=== PATIENT | male | born 1935 | race Caucasian/White ===

== ENCOUNTER 2019-08-23 18:31 | Observation (INO) | payer MEDICARE ==
[~2019-08-23] VITALS: Ht 180.3 cm; Wt 76.7 kg
[~2019-08-23 18:31] MED LIST: ASPIRIN EC81 MG PO; BENAZEPRIL10 MG PO; BICALUTAMIDE50 MG PO; CIPROFLOXACN500 MG PO; FOLIC ACID1 MG PO; MAXITROL0.1 % OD; VALTREX1 GM PO; [UNRECOGNIZED DRUG - OTHER] OR
--- NOTE | 2019-08-23 18:31 | NUR ---
PT HERE PER EMS. ALERT/
[2019-08-23 19:10] LABS: GFR > 60 ML/MIN (>=60 (CALC)); GFR FOR AFR.AMER. > 60 ML/MIN (>=60 (CALC))
[2019-08-23 19:10] LABS: HEMATOCRIT 39.7 % (39.0-50.0); HEMOGLOBIN 13.6 g/dl (14.0-18.0); IMMATURE GRANULOCYTES 0.8 % (0.0-5.0); MEAN CELL VOLUME 91.1 fL CALC (80.0-100.0); MEAN CORPUSCULAR HGB 31.2 pG CALC (26.0-32.0); MEAN CORPUSCULAR HGB CONC 34.3 g/dL CAL (32.0-36.0); NEUT# 10.22 thou/uL (1.82-7.42); RED BLOOD COUNT 4.36 mill/uL (4.70-6.10); RED CELL DISTRI WIDTH 12.1 % (11.5-15.5)
--- NOTE | 2019-08-23 19:24 | NUR ---
REPORT GIVEN TO ISABELA ORTIZ
--- NOTE | 2019-08-23 19:25 | NUR ---
ASSUMED CARE. PT WAS IN CT WITH DAY STAFF AND UPON RETURN BACK TO THE DEPARTMENT PT WAS EVALUATED BY DR. THORNTON. STATES STROKE SCALE IS NEGATIVE. APPARENTLY TELESTROKE WAS NOT CONNECTING WITH NEUROLOGIST WHILE PT WAS IN CT.
[2019-08-23 19:31] LABS: INTERNATIONAL NORMALIZED RATIO 0.9 RATIO (0.7-1.3); PROTHROMBIN TIME 9.8 SECONDS (9.0-12.5)
--- NOTE | 2019-08-23 19:37 | NUR ---
DR THORNTON BACK AT BEDSIDE TO RE-EVAL PT. AT BEDSIDE. PT IS A/O (VERY HARD OF HEARING) GRANADOS. GRASPS EQUAL AND STRONG. ROM + TO ALL EXT. SPEECH CLEAR
[2019-08-23 19:46] LABS: ALBUMIN 3.9 g/dL (3.2-5.0); ALKALINE PHOSPHATASE 71 u/l (38-126); ANION GAP 9 (6-22 (CALC)); BILIRUBIN, TOTAL 0.3 mg/dL (0.0-1.4); BUN 18 mg/dL (8-23); BUN/CREATININE RATIO 21 (12-20 (CALC)); CARBON DIOXIDE 27 mmol/l (22-30); CHLORIDE 101 mmol/l (95-108); CREATININE 0.9 mg/dL (0.7-1.3); GFR > 60 ML/MIN (>=60 (CALC)); GFR FOR AFR.AMER. > 60 ML/MIN (>=60 (CALC)); LIPASE 53 u/l (23-300); POTASSIUM 3.6 mmol/l (3.5-5.1); SGOT/AST 21 u/l (19-48); SODIUM 134 mmol/l (137-146); TOTAL PROTEIN 6.6 g/dL (6.3-8.2)
--- NOTE | 2019-08-23 20:00 | NUR ---
DR HOWELL CALLED ME AND EXPLAINED THAT THE TELESTROKE IS FAILING ON HIS SIDE. REQUESTED THAT SOMEONE FACE TIME HIM WITH PT SO HE CAN EVAL PT. I AM NOT COMPUTOR [employer] ENOUGH FOR SUCH A REQUEST SO I ADVISED DR THORNTON WHO WENT IN TO THE PATIENT AND FACETIMED WITH DR. HOWELL.
[2019-08-23 20:06] LABS: URINE BILIRUBIN - DIPSTICK NEGATIVE (NEGATIVE); URINE BLOOD DIPSTICK NEGATIVE (NEGATIVE); URINE COLOR YELLOW; URINE GLUCOSE - DIPSTICK NEGATIVE (NEGATIVE); URINE KETONE NEGATIVE (NEGATIVE); URINE LEUK ESTERASE NEGATIVE (NEGATIVE); URINE NITRITE - DIPSTICK NEGATIVE (Negative); URINE PROTEIN - DIPSTICK NEGATIVE (NEG-TRACE); URINE UROBILINOGEN - DIPSTICK 0.2 E.U./dL (0.2)
--- NOTE | 2019-08-23 20:21 | NUR ---
FLU AND STREP SWABS OBTAINED. NO CHANGE IN NEURO STATUS. VSS.
--- NOTE | 2019-08-23 22:12 | NUR ---
REPORT TO XI. DISCUSSION ABOUT BLOOD PRESSURE MEDICATION. DR. THORNTON STATES THAT DR MENA HAD ASSUMED CARE OF PT.
--- NOTE | 2019-08-23 22:15 | NUR ---
to floor via stretcher with belongings in bag/belly pack/shoes.
--- NOTE | 2019-08-23 22:19 | NUR ---
PT ARRIVED TO THE FLOOR VIA STRETCHER, ACCOMPANIED BY ER STAFF. PT AMBULATED FROM STRETCHER TO BED WITH A STEADY GATE. ALERT AND ORIENTED. RESPIRATIONS EVEN AND UNLABORED ON RA, LUNGS SOUND CLEAR. PEDAL PULSES STRONG. PT DENIES ANY PAIN OR DISCOMFORT AT THIS TIME. PT ORIENTED TO ROOM AND CALL [facility]. SAFETY PRECAUTIONS IN PLACE. WILL CONTINUE TO MONITOR.
[2019-08-23 22:28] VITALS: BP 163/82
[2019-08-23] MEDS ORDERED: DITROPAN5 MG/TA1 PO (22:30)
[2019-08-23] MEDS ORDERED: METOPROL TAR25 MG PO (22:31)
[2019-08-24 00:17] VITALS: BP 151/79
--- NOTE | 2019-08-24 00:26 | NUR ---
PT RESTING IN BED, RESPIRATIONS EVEN AND UNLABORED ON RA. NO S/S OF DISTRESS AT THIS TIME. SAFETY PRECAUTIONS IN PLACE. WILL CONTINUE TO MONITOR.
[2019-08-24 03:41] VITALS: BP 168/81
--- NOTE | 2019-08-24 04:10 | NUR ---
PT RESTING IN BED. RESPIRATIONS EVEN AND UNLABORED ON RA. TELE IN PLACE. WILL CONTINUE TO MONITOR.
[2019-08-24 05:11] LABS: HEMATOCRIT 38.9 % (39.0-50.0); HEMOGLOBIN 13.4 g/dl (14.0-18.0); IMMATURE GRANULOCYTES 0.4 % (0.0-5.0); MEAN CELL VOLUME 90.7 fL CALC (80.0-100.0); MEAN CORPUSCULAR HGB 31.2 pG CALC (26.0-32.0); MEAN CORPUSCULAR HGB CONC 34.4 g/dL CAL (32.0-36.0); NEUT# 10.66 thou/uL (1.82-7.42); RED BLOOD COUNT 4.29 mill/uL (4.70-6.10); RED CELL DISTRI WIDTH 12.2 % (11.5-15.5)
[2019-08-24 05:38] LABS: ANION GAP 11 (6-22 (CALC)); BUN 13 mg/dL (8-23); BUN/CREATININE RATIO 19 (12-20 (CALC)); CARBON DIOXIDE 24 mmol/l (22-30); CHLORIDE 103 mmol/l (95-108); CREATININE 0.7 mg/dL (0.7-1.3); GFR > 60 ML/MIN (>=60 (CALC)); GFR FOR AFR.AMER. > 60 ML/MIN (>=60 (CALC)); POTASSIUM 3.8 mmol/l (3.5-5.1); SODIUM 135 mmol/l (137-146)
[2019-08-24 08:31] VITALS: BP 154/74
--- NOTE | 2019-08-24 10:56 | NUR ---
RESIDENT IS ALERT AND ORIENTED AND ABLE TO VERBALIZE NEEDS. SKKIN WARM TO TOUCH. MEDICATIONS GIVEN AND TOLERATED WELL. DENIES PAIN. RESIDENT HAD LARGE BM THIS AM WITH NO COMPLICATIONS. COMPLAINED OF UPSET STOMACH EARLIER IN SHIFT BUT STATES HE FEELS BETTER. 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
[2019-08-24 10:58] VITALS: BP 139/71
[2019-08-24] MEDS ORDERED: ADLT ASA LOW81 MG PO (12:06)
[2019-08-24] MEDS ORDERED: AMLODIPINE BESYL5 MG PO (12:07)
[2019-08-24 16:04] VITALS: BP 168/84
--- NOTE | 2019-08-24 17:03 | NUR ---
RESIDENT WAS DISCHARGED HOME AT 420PM. ALL PERTINENT PAPERS SIGNED. DISCUSSED AND EDUCATED ON DISCHARGED MEDICATIONS AND FOLLOW UP WITH PCP. RESIDENT STATED HE UNDERSTOOD. RESIDENT WAS TRANSFERRED TO VEHICLE VIA WHEELCHAIR AND DISCHARGED HOME WITH . ALL BELONGONGS TAKEN WITH RESIDENT
== END 2019-08-24 16:23 | disposition home or self-care (01) ==
LOC: ED 18:31 → ED-I 20:40 → ED 20:51 → MS2 20:52 → ED-I 20:52 → MS2 21:45
PROVIDERS: Emergency Medicine; Family Medicine; ADMIT Internal Medicine; ATTEND Internal Medicine
DX: R42 Dizziness and giddiness (principal); I10 Essential (primary) hypertension; R05 Cough; R11.0 Nausea; R53.1 Weakness; R20.0 Anesthesia of skin; R20.2 Paresthesia of skin; H53.8 Other visual disturbances; H91.90 Unspecified hearing loss, unspecified ear; Z20.828 Contact with and (suspected) exposure to other viral communicable diseases
CPT/HCPCS: G0378; Q9967